=== PATIENT | male | born 1980 | race Caucasian/White ===

== ENCOUNTER → 2016-10-26 | Outpatient (CLI) | payer OTHER ==
--- NOTE | 2016-10-26 15:25 | DX ---
Videofluoroscopy with Speech Therapy Clinical History: 36-year-old male with intermittent episodes of coughing and occasionally choking, o nly noted with thin liquids. The patient indicates that he had two episodes of pneumonia as a young c hild, but none as an adult. Evaluate dysphagia. ICD-10 Diagnostic Code: R13.10. Technique: The patient was imaged in the lateral projection, and this exam was performed in conjuncti on with Zara, our speech therapist. The patient was evaluated during consumption of thin barium, balbina lesauce coated with barium, a cracker coated with barium, and a 13 mm barium tablet with water. Fluoroscopy Time: 1.3 minutes (exposure dose of 2.80 mGy). Comparison Study: None. Findings: There is mild oropharyngeal dysphagia, with some base of tongue weakness and premature empt marialuisa of the liquid bolus into the hypopharynx, to the level of the vallecula and piriform sinuses. Th ere is appropriate epiglottic inversion with no epiglottic undercoating, vestibular penetration, or f rank aspiration. There is no nasopharyngeal reflux, nor is there any cricopharyngeus spasm or other u pper esophageal sphincter dysfunction. Impression: Mild oropharyngeal dysphagia with thin liquids, as above-detailed. There was no evidence of aspiration. Please also refer to the speech therapist's separate assessments and specific recommendations for fol low up.
== END ==
PROVIDERS: ATTEND Internal Medicine
DX: R13.12 Dysphagia, oropharyngeal phase (principal)
CPT/HCPCS: 92611-GN